=== PATIENT | male | born 1955 | race Caucasian/White ===

== ENCOUNTER 2019-06-02 08:22 | Day surgery (SDC) | payer SELFPAY ==
[2019-05-18 14:02] VITALS: BMI 21.2
[2019-06-02] VITALS (9 sets, daily range): BP systolic 101–133; BP diastolic 53–88; PULSE 52–68; RESP 15–16; TEMP 36.3–37.2; O2SAT 97–100; BMI 20.7
--- NOTE | 2019-06-02 | LES_PTH ---
PATIENT: CARYN TREVIÑO LOC: [facility] – [place] U#:[id number] AGE/SX: 63/M ROOM: RE06/02/[address]: Dr. Alex Cueto MD : 1955 BED: DIS: 06/02/2019 SPEC #: [id number] RECD: 06/02/19 10:19 STATUS: ISAÍAS RENate #: [id number] CADENCE: 06/02/19 00:[address]: Alex Cueto DEPT: SURGICAL PATHOLOGY RECD BY: Hailey Harris ENTERED: 06/02/19 10:51 SP TYPE: Lesion OTHR DR: Dr. Joe Jeronimo DO Tissues: A - Skin of forearm, NOS B - Skin of forearm, NOS Procedures: Frozen Section (charge) Frozen Section Tessa'eduardo ([facility]) Surgery Specimen Level IV HEADER OPERATION: Excision ulcerated lesion, distal dorsal forearm with frozen section PRE-OP DIAGNOSIS: 2.6 cm nonhealing ulcer left distal dorsal forearm near wrist, clinically consistent with carcinoma TISSUE SUBMITTED: A - Nonhealing ulcer left distal dorsal forearm near wrist, suture at 12 o'clock, FS, B - Basal cell carcinoma, left distal dorsal forearm, suture at 12 o'clock FROZEN SECTION DIAGNOSIS A. Skin lesion, dorsal forearm, excision: Basal cell carcinoma, excised in planes examined. AM:samantha 06/02/19 Case has been reviewed in consultation with Dr. Cruz who concurs with the above diagnosis. IDC:SJ MICROSCOPIC DIAGNOSIS A. Skin lesion left dorsal forearm, biopsy: Basal cell carcinoma with focal ulceration and associated inflammation, nodular type (2.2 cm in greatest dimension), completely excised in the planes of sections examined. Actinic keratosis and solar elastosis. B. Basal cell carcinoma left distal dorsal forearm, excisional biopsy: Negative for carcinoma. Actinic keratosis and solar elastosis. LUBNA:samantha 06/03/19 COMMENT Case has been reviewed in consultation with Dr. Ramirez who concurs with the above diagnosis. IDC:MARIE MICROSCOPIC DESCRIPTION Slides are reviewed. GROSS DESCRIPTION A - Received fresh for frozen section diagnosis labeled with the patient's name is a specimen designated nonhealing ulcer left distal dorsal forearm. The specimen consists of a round piece of ramirez-white skin measuring 2.7 x 2.5 cm and up to 0.5 cm in thickness. The specimen is oriented by a suture at 12 o'clock. The specimen is inked as follows: 12 to 3 o'clock - black, 3 to 6 o'clock - blue, 6 to 9 o'clock - green, 9 to 12 o'clock - yellow and deep margin - red. The specimen is serially sectioned and submitted entirely for frozen section diagnosis in four cassettes. B - Received in fixative is one container labeled with the patient's name and designated basal cell carcinoma, left distal dorsal forearm, suture at 12 o'clock. The specimen consists of a ring-shaped piece of ramirez-white skin measuring 4.5 x 4.5 cm and up to 0.5 cm in thickness. There is a central round defect noted consistent with site of specimen A measuring 3 cm in diameter. The specimen is oriented by a suture at identified 12 o'clock. A central defect consisting of old margin is inked red and new margins are inked as follows: 12 to 3 o'clock - black, 3 to 6 o'clock - blue, 6 to 9 o'clock - green, and 9 to 12 o'clock - yellow. The peripheral ring of the skin measures 0.5 to 1 cm in width. The entire specimen is submitted in four cassettes. / SJ:samantha 06/02/19 TC:0 CPT: 94797 x2, 54297, 28892 x3
--- NOTE | 2019-06-02 00:08 | HP.PCM_ITS ---
History and Physical Date of Admission: 06/02/19 HISTORY OF PRESENT ILLNESS 63 year old man presents with a nonhealing ulcer left distal dorsal forearm near the wrist that has increased in size over the last several months. He denies trauma to the area. He denies any fever or recent infection. There has been some ulceration and scabbing and is clinically consistent with a carcinoma. Patient presents today for further evaluation and treatment. PAST MEDICAL HISTORY Cataracts, bilateral Glaucoma Hearing problem Ulcer PAST SURGICAL HISTORY cataract extraction with lens replacement Ulcer surgery ALLERGIES No Known Allergies MEDICATIONS Barley Greens FAMILY HISTORY Unknown - No problems noted. SOCIAL HISTORY Smoking Status: Never smoker alcohol intake: never substance use type: does not use REVIEW OF SYSTEMS General - Denies fever, fatigue, and weight loss. Eyes - Has cataracts and glaucoma. ENT - Denies nasal congestion and sore throat. Endocrine - Denies excessive thirst and urination. Skin - Denies skin cancer. Has enlarging nonhealing ulcer left distal dorsal forearm near the wrist that is clinically consistent with carcinoma. Musculoskeletal - Denies joint pain, joint stiffness, weakness of muscles and joints, back pain, and arthritis. Neuro - Denies headaches. Cardiovascular - Denies chest pain, fatigue, and shortness of breath with exertion. Psych - Denies anxiety and depression. Respiratory - Denies chronic cough and shortness of breath. Gastrointestinal - Denies nausea, vomiting, diarrhea, and constipation. Hematologic - Denies abnormal bruising and bleeding. Genitourinary - Denies hematuria and urinary frequency. PHYSICAL EXAMINATION General - Alert and Oriented. HEENT - PERRL. EOMI. Throat is clear. No suspicious lesions noted. Neck - Supple and nontender. No cervical adenopathy. No suspicious lesions noted. Lungs - Clear to auscultation. Heart - Regular rate and rhythm. Abdomen - Soft and nondistended. Extremities - FROM. No axillary adenopathy. Radial pulses are palpable. On the left distal dorsal forearm near the wrist is a nonhealing ulcer with some nodularity at the edges. Measures 2.6 cm. Has irregular borders. No evidence of infection. Lesion is nontender. Neuro - CN II-XII grossly intact. Psych - Normal mood and affect. ASSESSMENT 2.6 cm nonhealing ulcer left distal dorsal forearm near the wrist, clinically consistent with carcinoma. PLAN Recommend excision of this nonhealing ulcer and send it to Pathology for analysis to rule out carcinoma. Due to its ulceration, it will be a full thickness excision. Reconstruction will be with skin grafting. If carcinoma is present, then additional margin excision will be done with a larger skin graft reconstruction done. Surgery will be done under local anesthesia and IV sedation on an outpatient basis. Patient was informed of the risks and complications of the procedure including alternatives to surgery. These were discussed with the patient personally. Patient voices understanding and wishes to proceed. Some of the risks and complications were included in a form from the [employer].
[2019-06-02] MEDS: Lactated Ringers 1,000 ML 100 ML IV (09:00)
[2019-06-02] MEDS: Cefazolin 2 GM in 0.9% Normal Saline 100 ML IV (09:47)
[2019-06-02] MEDS: Mupirocin Ointment 22gm Tube 1 APPLIC (10:16)
--- NOTE | 2019-06-02 11:03 | PCM.OPRPT ---
Report of Operation Date of Procedure: 06/02/19 Pre-Operative Diagnosis: 2.6 cm nonhealing ulcer left distal dorsal forearm near the wrist, clinically consistent with carcinoma. Post-Operative Diagnosis: 2.6 cm ulcerated basal cell carcinoma left distal dorsal forearm near the wrist. Surgery/Procedure Performed:: Excision 2.6 cm ulcerated basal cell carcinoma left distal dorsal forearm near the wrist with STSG recosntruction from the left flank (25 cm2). Description of Surgical Findings:: 63 year old man presents with a nonhealing ulcer left distal dorsal forearm near the wrist that has increased in size over the last several months. He denies trauma to the area. He denies any fever or recent infection. There has been some ulceration and scabbing and is clinically consistent with a carcinoma. Patient was informed of the risks and complications of the procedure including alternatives to surgery. These were discussed with the patient personally. Patient voices understanding and wishes to proceed. Some of the risks and complications were included in a form from the [employer]. Frozen section left distal dorsal forearm near the wrist - basal cell carcinoma. Size of skin graft left distal dorsal forearm near the wrist - 5 x 5 cm. ict support and test engineers: Nicolas Carroll. Type of Anesthesia:: Local MAC - xylocaine with epinephrine and IV sedation. Specimen's removed: 1. Ulcerated lesion left distal dorsal forearm near the wrist to Pathology as a frozen section. 2. Ulceratred basal cell carcinoma left distal dorsal forearm near the wrist to Pathology. Drains: None. Estimated Blood Loss (mL): 25 ml. Description of Procedure: Patient was taken to OR in supine position and was given IV sedation. The left upper extremity and left flank areas were prepped and draped in the usual fashion. SCD's were placed for DVT prophylaxis. Perioperative antibiotics were given intravenously. The ulcerated lesion left distal dorsal forearm near the wrist was infiltrated with xylocaine and epinephrine. After waiting 5 minutes for the anesthetic to take effect, the lesion was excised with a 1 mm margin in a circular fashion into the subcutaneous tissue as a full thickness excision. A suture was marked at the 12 oclock position for pathology orientation. The lesion was sent to Pathology for analysis as a frozen section to rule out carcinoma. Frozen section showed an ulcerated basal cell carcinoma. So additional margin excision will be done. Further circular excision with a 1 cm margin in all directions was done into the subcutaneous tissue thus making it a 4.6 cm excision. A suture was marked at 12 oclock position for pathology orientation. The additional tissue was sent to pathology for analysis to rule out carcinoma at the margins. The size of the resultant defect was 5 x 5 cm or 25 cm2. Hemostasis was obtained with electrocautery. The wound was irrigated with saline. I marked out an ellipse of skin on the left flank. These markings were infiltrated with xylocaine with epinephrine. After waiting 5 minutes for the anesthetic to take effect, an elliptical excision was done into the subcutaneous tissue. The subcutaneous tissue was removed from the undersurface of the dermis as well as deeper dermis thus fashioning a thick split thickness skin graft. The skin graft was placed on stretch and it was meshed with a size 15 scalpel. The skin graft was placed in saline. The donor incision was then closed in a layered fashion after removing additional subcutaneous tissue to aid in wound closure. Hemostasis was obtained with electrocautery. The wound was irrigated with saline. I closed Katie's fascial layer with 3-0 Monocryl figure of eight interrupted sutures. The deep dermis and subcutaneous tissue was approximated with 3-0 Monocryl interrupted sutures. The skin was approximated with 3-0 V lock unidirectional barbed running subcuticular suture. This was followed by Histoacryl skin tissue adhesive followed by gauze dressing. The split thickness skin graft was placed on the defect left distal dorsal forearm near the wrist and was approximated to the skin edges with surgical clips. Surgical clips were also used for central quilting stabilization. Xeroform gauze was applied to the graft followed by Bactroban ointment and cotton balls soaked in saline and secured to the skin edge with 3-0 Nylon tie over stent suture dressing. Gauze was applied to the skin graft dressing followed by a compression gian wrap. Patient tolerated the procedure well and was sent to PACU in satisfactory condition. Patient will be sent home on antibiotics and pain medication. He will keep his left forearm elevated during the initial postoperative period. Patient will followup in a week for a wound check and removal of the skin graft dressing for evaluation and for discussion of the pathology report. Grafts/Implants Used: None. - Complications None. - Admit VTE Documentation VTE Present on Admission: No VTE Mechan Device Prophylaxis: SCD's VTE Pharm Prophylaxis ordered?: No Code Visit Surgery Charges CPT - 95389 ICD-10 - C44.609, D49.2, L98.492 82349 C44.609, D49.2, L98.492
--- NOTE | 2019-06-02 11:12 | DCINST_ITS ---
You will use the following diet at home:: No restrictions Discharge Activity: May Shower - in two days. wear plastic bag over left hand when showering., - - no heavy lifting with left hand. keep left hand elevated. May shower in (days): 2 - wear plastic bag over left hand when showering. Weight Bearing Status: Weight bearing as tolerated Lifting Restrictions: 20 lbs. Keep extremity elevated above heart level: Left Arm Call your doctor if your incision/area has: Continuous Slow Oozing, Sudden Increased Bleeding, Increased Pain/ Swelling, Increased Redness, Foul Smelling Discharge, Swelling at the incision site Call your doctor if you observe: Fever of 101 or Higher, Coldness, Increased Pain, Shortness of breath, Chest pain, Calf discomfort, Uncontrolled pain Suture Line Care: - Change Dressing in (Days):: 2 - left flank dressing only. Remove Dressing in (days):: 6 - will change left forearm dressing in the office. Cleanse incision/area with: - - may get left flank incision wet in the shower in two days. wear plastic bag over left forearm when showering. Allergies/Adverse Reactions: Allergies No Known Allergies Allergy (Unverified 06/02/19 08:37) Medications to take at Discharge Barley Greens 1 dose PO DAILY 05/26/19 Doxycycline [Vibramycin] 100 mg PO BID #14 cap 06/02/19 Lactobacillus Acidophilus/Fos [Acidophilus Probiotic Tablet] 1 ea PO BID #20 tab 06/02/19 Oxycodone HCl/Acetaminophen [Percocet 5/325] 1 tab PO Q4H PRN PRN 7 Days #40 tab 06/02/19 The following prescriptions were given: Lactobacillus Acidophilus/Fos [Acidophilus Probiotic Tablet] 1 ea PO BID #20 tab Prescription Printed Oxycodone HCl/Acetaminophen [Percocet 5/325] 1 tab PO Q4H PRN PRN 7 Days #40 tab PRN Reason: Pain Prescription Printed Doxycycline [Vibramycin] 100 mg PO BID #14 cap Prescription Printed Primary Care Physician: Joe Jeronimo DO [Primary Care Provider] - Test Results: Test results from this visit will be discussed in further detail at your follow- up appointment, if applicable. Please Follow Up With: Alex Cueto MD When: Thursday06/08/19. call [phone] for appt. Proposed Discharge Date: 06/02/19
== END 2019-06-02 12:56 | disposition home or self-care (01) ==
LOC: SDC 08:32 → AC 08:34
PROVIDERS: Family Provider Family Medicine; PCP Family Medicine; Referring Provider Surgery; Visit Provider Surgery
PROC: (CPT 11603; principal; 2019-06-02 09:40)
DX: C44.619 Basal cell carcinoma of skin of left upper limb, including shoulder (principal)
CPT/HCPCS: 11603; 15100; 88305; 88331; 88332; J7120; J2405